=== PATIENT | male | born 1945 | race Caucasian/White ===

== ENCOUNTER → 2018-12-13 | Outpatient (CLI) | payer OTHER ==
--- NOTE | 2018-12-13 10:14 | US ---
EXAMINATION TYPE: US carotid duplex BILAT DATE OF EXAM: 12/13/2018 COMPARISON: NONE CLINICAL HISTORY: R20.2 Paresthesia of skin. HTN controlled with meds, no hx TIA EXAM MEASUREMENTS: RIGHT: Peak Systolic Velocity (PSV) cm/sec ----- Right CCA: 80.9 ----- Right ICA: 100.4 ----- Right ECA: 110.8 ICA/CCA ratio: 1.2 RIGHT: End Diastole cm/sec ----- Right CCA: 13.8 ----- Right ICA: 20.2 ----- Right ECA: 8.5 LEFT: Peak Systolic Velocity (PSV) cm/sec ----- Left CCA: 86.2 ----- Left ICA: 85.6 ----- Left ECA: 113.4 ICA/CCA ratio: 1.0 LEFT: End Diastole cm/sec ----- Left CCA: 20.2 ----- Left ICA: 20.8 ----- Left ECA: 12.4 VERTEBRALS (direction of flow): Right Vertebral: Antegrade Left Vertebral: Antegrade Rhythm: Normal Corcoran scale images show mild eccentric plaque at right carotid bulb anteriorly. Velocity measurements and ratios remain within normal limits and visualized portion of both internal carotid arteries. IMPRESSION: No hemodynamically significant stenosis is seen in either internal carotid artery. Criteria for Assigning % of Stenosis / Diameter reduction (Estimation based on the indirect measurements of the internal carotid artery velocities (ICA PSV). 1. Normal (no stenosis)=ICA PSV < 125 cm/s: ratio < 2.0: ICA EDV<40 cm/s. 2. Less than 50% stenosis=ICA PSV < 125 cm/s: ratio < 2.0: ICA EDV<40 cm/s. 3. 50 to 69% stenosis=ICA PSV of 125 to 230 cm/s: ration 2.0 ? 4.0: ICA EDV 40-100 cm/s. 4. Greater than 70% stenosis to near occlusion= ICA PSV > 230 cm/s: ratio > 4.0: ICA EDV > 100 cm/s. 5. Near occlusion= ICA PSV velocities may be low or undetectable: variable ratio and ICA EDV. 6. Total occlusion=unable to detect flow.
== END | disposition home or self-care (01) ==
LOC: RADUSWWP 09:30
DX: R20.2 Paresthesia of skin (principal)
CPT/HCPCS: 93880

== ENCOUNTER 2021-05-15 15:12 | Emergency (ER) | payer OTHER ==
--- NOTE | 2021-05-15 16:04 | ED ---
General Adult HPI - General Chief complaint: Recheck/Abnormal Lab/Rx Stated complaint: high potassium Time Seen by Provider: 05/15/21 15:27 Source: patient Mode of arrival: ambulatory Limitations: no limitations - History of Present Illness Initial comments: Dictation was produced using [employer] dictation software. please excuse any grammatical, word or spelling errors. Chief Complaint: 76-year-old male instructed to come to the emergency department for elevated potassium History of Present Illness: Is 76-year-old male he had blood drawn 2 days ago for a scheduled routine checkup next week. He had his blood work drawn and results were obtained. He was called by lab staff told to come to the emergency department for a potassium level 5.7. Patient has no complaints. Patient feels at baseline. He has no complaints at this time. The ROS documented in this emergency department record has been reviewed and confirmed by me. Those systems with pertinent positive or negative responses have been documented in the HPI. All other systems are other negative and/or noncontributory. PHYSICAL EXAM: General Impression: Alert and oriented x3, not in acute distress HEENT: Normocephalic atraumatic, extra-ocular movements intact, pupils equal and reactive to light bilaterally, mucous membranes moist. Cardiovascular: Heart regular rate and rhythm Chest: Able to complete full sentences, no retractions, no tachypnea Abdomen: abdomen soft, non-tender, non-distended, no organomegaly Musculoskeletal: Pulses present and equal in all extremities, no peripheral edema Motor: no focal deficits noted Neurological: CN II-XII grossly intact, no focal motor or sensory deficits noted Skin: Intact with no visualized rashes Psych: Normal affect and mood ED course: 76-year-old male presents emergency department for elevated potassium level 5.7. Signs upon arrival are within acceptable limits. Patient has no complaints. Patient's symptoms likely a hemolyzed sample. Laboratory evaluation obtained. CBC unremarkable. Metabolic panel within acceptable limits. Of note bicarb is slightly low at 18.. Elevated renal markers with creatinine 1.49 and BUN of 43 likely some mild dehydration. Magnesium 1.4. Patient given magnesium oxide. Reevaluated bedside at 5:15 PM upon of a stable medical condition. Patient's potassium level likely a lab error. He does have an appointment with his primary care doctor soon. Temp precautions discussed. Patient be discharged. Patient told to increase his magnesium in his diet and also to increase his hydration. EKG interpretation: Ventricular rate 67, sinus rhythm, MO interval 205, QRS 92, QTC 371. No MO prolongation, no QTC prolongation, no ST or T-wave changes noted. Overall, this EKG is unremarkable - Related Data Home Medications Medication Instructions Recorded Confirmed Aspirin 81 mg PO DAILY 05/02/14 07/10/14 Cyanocobalamin [Vitamin B-12] 500 mcg PO DAILY@1200 05/02/14 07/10/14 Enalapril [Vasotec] 10 mg PO DAILY 05/02/14 07/10/14 Etanercept [Enbrel] 50 mg SQ Q7DAYS 05/02/14 07/10/14 Naproxen Sodium [Aleve] 220 mg PO Q12HR 05/02/14 07/10/14 Simvastatin [Zocor] 10 mg PO HS 05/02/14 07/10/14 Terazosin [Hytrin] 10 mg PO HS 05/02/14 07/10/14 glipiZIDE [Glucotrol] 10 mg PO BID 05/02/14 07/10/14 Allergies Allergy/AdvReac Type Severity Reaction Status Date / Time No Known Allergies Allergy Verified 05/15/21 15:22 Review of Systems ROS Statement: Those systems with pertinent positive or pertinent negative responses have been documented in the HPI. ROS Other: All systems not noted in ROS Statement are negative. Past Medical History Past Medical History: Diabetes Mellitus, Hyperlipidemia Additional Past Medical History / Comment(s): psorisis History of Any Multi-Drug Resistant Organisms: None Reported Additional Past Surgical History / Comment(s): eye lid, cataract Past Psychological History: No Psychological Hx Reported Smoking Status: Never smoker Past Alcohol Use History: None Reported Past Drug Use History: None Reported General Exam Limitations: no limitations Course Vital Signs 05/15/21 05/15/21 15:17 15:56 Temperature 97.3 F L 98.6 F Pulse Rate 68 61 Respiratory 20 12 Rate Blood Pressure 135/65 137/123 O2 Sat by Pulse 99 98 Oximetry Medical Decision Making - Lab Data Result diagrams: 05/15/21 15:56 05/15/21 15:56 Lab Results 05/15/21 05/15/21 Range/Units 15:56 15:56 WBC 6.8 (3.8-10.6) k/uL RBC 3.78 L (4.30-5.90) m/uL Hgb 12.1 L (13.0-17.5) gm/dL Hct 36.2 L (39.0-53.0) % MCV 95.7 (80.0-100.0) fL MCH 32.1 (25.0-35.0) pg MCHC 33.5 (31.0-37.0) g/dL RDW 12.9 (11.5-15.5) % Plt Count 122 L (150-450) k/uL MPV 7.8 Neutrophils % 66 % Lymphocytes % 22 % Monocytes % 6 % Eosinophils % 5 % Basophils % 1 % Neutrophils # 4.5 (1.3-7.7) k/uL Lymphocytes # 1.5 (1.0-4.8) k/uL Monocytes # 0.4 (0-1.0) k/uL Eosinophils # 0.3 (0-0.7) k/uL Basophils # 0.1 (0-0.2) k/uL Sodium 140 (137-145) mmol/L Potassium 5.0 (3.5-5.1) mmol/L Chloride 112 H (98-107) mmol/L Carbon Dioxide 18 L (22-30) mmol/L Anion Gap 10 mmol/L BUN 43 H (9-20) mg/dL Creatinine 1.49 H (0.66-1.25) mg/dL Est GFR (CKD-EPI)AfAm 52 (>60 ml/min/1.73 sqM) Est GFR (CKD-EPI)NonAf 45 (>60 ml/min/1.73 sqM) Glucose 108 H (74-99) mg/dL Calcium 8.9 (8.4-10.2) mg/dL Magnesium 1.4 L (1.6-2.3) mg/dL Creatine Kinase 67 (55-170) U/L Disposition Clinical Impression: Abnormal laboratory test Disposition: HOME SELF-CARE Condition: Good Instructions (If sedation given, give patient instructions): Hypomagnesemia (ED), Dehydration (ED) Is patient prescribed a controlled substance at d/c from ED?: No Referrals: [facility],Clinic [Primary Care Provider] - 1-2 days
[2021-05-15 16:06] LABS: Basophils # (A) 0.1 k/uL (0-0.2); Basophils % (A) 1 %; Eosinophils # (A) 0.3 k/uL (0-0.7); Eosinophils % (A) 5 %; HCT 36.2 % (39.0-53.0); HGB 12.1 gm/dL (13.0-17.5); Lymphocytes # (A) 1.5 k/uL (1.0-4.8); Lymphocytes % (A) 22 %; MCH 32.1 pg (25.0-35.0); MCHC 33.5 g/dL (31.0-37.0); MCV 95.7 fL (80.0-100.0); Mean Platelet Volume 7.8; Monocytes # (A) 0.4 k/uL (0-1.0); Monocytes % (A) 6 %; Neutrophils # (A) 4.5 k/uL (1.3-7.7); Neutrophils % (A) 66 %; Platelet Count 122 k/uL (150-450); RBC 3.78 m/uL (4.30-5.90); RDW 12.9 % (11.5-15.5); WBC 6.8 k/uL (3.8-10.6)
[2021-05-15 16:59] LABS: Calcium 8.9 mg/dL (8.4-10.2); Magnesium 1.4 mg/dL (1.6-2.3)
[2021-05-15] MEDS ORDERED: MAGNESIUM OXIDE 400 MG TAB PO STA (17:10)
[2021-05-15 17:24] VITALS: BP 123/57; PULSE 60; RESP 14; TEMP 97.6
== END 2021-05-15 17:33 | disposition home or self-care (01) ==
LOC: EC 15:12
DX: E87.5 Hyperkalemia (principal); E11.9 Type 2 diabetes mellitus without complications; E78.5 Hyperlipidemia, unspecified; Z79.82 Long term (current) use of aspirin
CPT/HCPCS: 36415; 80048; 82550; 83735; 85025; 93005; 99285

== ENCOUNTER → 2021-06-05 | Outpatient (CLI) | payer OTHER ==
--- NOTE | 2021-06-05 07:58 | US ---
EXAMINATION TYPE: US carotid duplex BILAT DATE OF EXAM: 06/05/2021 COMPARISON: US CLINICAL HISTORY: R42.0 DIZZINESS. Diabetic; dizziness with positional changes EXAM MEASUREMENTS: RIGHT: Peak Systolic Velocity (PSV) cm/sec ----- Right CCA: 72.0 ----- Right ICA: 81.1 ----- Right ECA: 125.5 ICA/CCA ratio: 1.1 RIGHT: End Diastole cm/sec ----- Right CCA: 17.6 ----- Right ICA: 15.0 ----- Right ECA: 22.0 LEFT: Peak Systolic Velocity (PSV) cm/sec ----- Left CCA: 72.2 ----- Left ICA: 86.6 ----- Left ECA: 122.2 ICA/CCA ratio: 1.2 LEFT: End Diastole cm/sec ----- Left CCA: 19.4 no significant hemodynamic stenosis as visualized. ----- Left ICA: 26.0 ----- Left ECA: 18.8 VERTEBRALS (direction of flow): Right Vertebral: Antegrade Left Vertebral: Antegrade Rhythm: Normal Mild intimal wall changes are seen at bilateral carotid bifurcation, but PSV is wnl bilaterally. IMPRESSION: 1. Criteria for Assigning % of Stenosis / Diameter reduction (Estimation based on the indirect measurements of the internal carotid artery velocities (ICA PSV). 1. Normal (no stenosis)=ICA PSV < 125 cm/s: ratio < 2.0: ICA EDV<40 cm/s. 2. Less than 50% stenosis=ICA PSV < 125 cm/s: ratio < 2.0: ICA EDV<40 cm/s. 3. 50 to 69% stenosis=ICA PSV of 125 to 230 cm/s: ration 2.0 ? 4.0: ICA EDV 40-100 cm/s. 4. Greater than 70% stenosis to near occlusion= ICA PSV > 230 cm/s: ratio > 4.0: ICA EDV > 100 cm/s. 5. Near occlusion= ICA PSV velocities may be low or undetectable: variable ratio and ICA EDV. 6. Total occlusion=unable to detect flow.
--- NOTE | 2021-06-05 08:33 | CT ---
EXAMINATION TYPE: CT brain wo con DATE OF EXAM: 06/05/2021 COMPARISON: None available HISTORY: Dizziness CT DLP: 1121 mGycm Automated exposure control for dose reduction was used. TECHNIQUE: CT scan of the brain is performed without IV contrast administration. FINDINGS: Right inferior cerebellar chronic infarct, with a smaller one superiorly. Brain volume loss changes. Scattered arterial atherosclerotic calcifications. Questionable right frontal subcortical white matte r elongated chronic infarct. No acute intracranial hemorrhage. No gross acute cortical infarct. No mi dline shift, herniation or ventriculomegaly. Unremarkable parson-white matter differentiation, basal cisterns, sella and CP angles. No gross space-o ccupying lesion, vasogenic edema or mass effect. Left scleral band, otherwise grossly unremarkable or bits. Mucosal thickening of the maxillary sinuses. Clear mastoid air cells. No aggressive bone lesion . 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 No acute intracranial hemorrhage or gross acute cortical infarct. No gross space-occupying lesion by this unenhanced CT scan. Further MRI assessment can be considered if clinically required.
== END | disposition home or self-care (01) ==
LOC: RADUSWWP 07:06
DX: I63.9 Cerebral infarction, unspecified (principal); E11.9 Type 2 diabetes mellitus without complications
CPT/HCPCS: 70450; 93880

== ENCOUNTER → 2021-12-27 | Outpatient (CLI) | payer OTHER ==
--- NOTE | 2021-12-27 10:16 | MR ---
EXAMINATION TYPE: MR brain wo con DATE OF EXAM: 12/27/2021 9:51 AM COMPARISON: CT head 06/05/2021 CLINICAL INDICATION:Male, 76 years old with history of R93.0 Abnormal DX IMAGING OF SKULL AND HEAD; TECHNIQUE: Multi planar, multi sequence imaging was performed through the brain including: T1, T2, In version recovery, Diffusion weighted imaging, and gradient echo imaging. No gadolinium was given. FINDINGS: The parson-white junctions, ventricular system, and cisterns appear unremarkable. Remote right cerebel lar lacunar injuries. Patchy areas of high T2 signal intensity are seen within the periventricular wh ite matter. Midline structures show no abnormality. Diffusion-weighted imaging shows no evidence of r estricted diffusion. The susceptibility weighted images do not reveal any evidence for micro-hemorrha ge. The bone marrow signal is within normal limits. The paranasal sinuses are unremarkable. Bilateral aph ahmet. IMPRESSION: 1. No evidence of intracranial mass or acute/subacute infarct. Similar remote right cerebellar injury . 2. Nonspecific white matter changes, likely secondary to small vessel ischemic disease.
== END | disposition home or self-care (01) ==
LOC: RADMRIMAIN 08:31
PROVIDERS: ATTEND Physician Assistant Medical
DX: R93.0 Abnormal findings on diagnostic imaging of skull and head, not elsewhere classified (principal)
CPT/HCPCS: 70551

== ENCOUNTER → 2022-06-17 | Outpatient (CLI) | payer OTHER ==
--- NOTE | 2022-06-17 11:34 | US ---
EXAMINATION TYPE: US kidneys/renal and bladder DATE OF EXAM: 06/17/2022 COMPARISON: NONE CLINICAL HISTORY: N18..9 CKD. CKD EXAM MEASUREMENTS: Right Kidney: 12.2 x 6.0 x 5.4 cm Left Kidney: 11.6 x 5.3 x 4.8 cm Right Kidney: cystic areas noted, largest = 5.6 x 5.4 x 5.3cm Left Kidney: cystic areas noted, largest = 1.7 x 1.7 x 2.0cm Bladder: appears wnl Bilateral Jets seen: no There is no evidence for hydronephrosis at this point in time. No nephrolithiasis is seen. No solid masses are identified. The urinary bladder is anechoic. Bilateral ureteral jets are seen. IMPRESSION: Simple renal cysts noted.
== END | disposition home or self-care (01) ==
LOC: RADUSWWP 10:06
DX: N28.1 Cyst of kidney, acquired (principal); N18.9 Chronic kidney disease, unspecified
CPT/HCPCS: 76770

== ENCOUNTER 2024-06-17 15:05 | Emergency (ER) | payer OTHER ==
--- NOTE | 2024-06-17 15:15 | ED ---
General Adult HPI - General Source: patient, RN notes reviewed Mode of arrival: ambulatory Limitations: no limitations <Ayala Coleman - Last Filed: 06/17/24 15:14> - General Source: patient, RN notes reviewed, old records reviewed Mode of arrival: ambulatory Limitations: no limitations - History of Present Illness -: month(s) Location: left, right, upper extremity, lower extremity Radiation: extremity Severity scale (1-10): 7 Quality: sharp Consistency: intermittent Improves with: none Worsens with: none Associated Symptoms: denies other symptoms Treatments Prior to Arrival: NSAID <Nino Anderson - Last Filed: 06/17/24 18:23> - General Stated complaint: Generalized pain Time Seen by Provider: 06/17/24 15:14 - History of Present Illness Initial comments: Quick note: 79-year-old male presented the ER for evaluation of pain. Patient states he has severe arthritis in his hips shoulders and hands which typically causes the pain. Patient states [facility]. Patient seeking pain management. No new injuries or traumas. (Ayala Coleman) This is a 79 female to the ER for evaluation patient presents today for evaluation of severe arthritis history of arthritis multiple ER visits recently as well as a primary care visit steroids have helped anti-inflammatories is amber saab patient is currently out of medication (Nino Anderson) - Related Data Home Medications Medication Instructions Recorded Confirmed Aspirin 81 mg PO HS 05/02/14 05/15/21 Cyanocobalamin [Vitamin B-12] 500 mcg PO HS 05/02/14 05/15/21 Etanercept [Enbrel] 50 mg SQ Q7DAYS 05/02/14 05/15/21 Simvastatin [Zocor] 10 mg PO HS 05/02/14 05/15/21 Terazosin [Hytrin] 10 mg PO HS 05/02/14 05/15/21 glipiZIDE [Glucotrol] 10 mg PO BID 05/02/14 05/15/21 Enalapril [Vasotec] 5 mg PO DAILY 05/15/21 05/15/21 Previous Rx's Medication Instructions Recorded methylPREDNISolone Dose Pack 4 mg PO DIRECTED #21 tab 05/16/24 [Medrol Dose Pack] Ketorolac [Toradol] 10 mg PO Q6HR #20 tab 06/17/24 predniSONE 50 mg PO DAILY #5 tablet 06/17/24 Allergies Allergy/AdvReac Type Severity Reaction Status Date / Time No Known Allergies Allergy Verified 05/16/24 08:54 Review of Systems ROS Other: All systems not noted in ROS Statement are negative. <Ayala Coleman - Last Filed: 06/17/24 15:14> ROS Other: All systems not noted in ROS Statement are negative. <Nino Anderson - Last Filed: 06/17/24 18:23> ROS Statement: Those systems with pertinent positive or pertinent negative responses have been documented in the HPI. Past Medical History Past Medical History: Diabetes Mellitus, Hyperlipidemia, Hypertension Additional Past Medical History / Comment(s): psorisis History of Any Multi-Drug Resistant Organisms: None Reported Additional Past Surgical History / Comment(s): eye lid, cataract Past Psychological History: No Psychological Hx Reported Smoking Status: Former smoker Past Alcohol Use History: None Reported Past Drug Use History: None Reported <Ayala Coleman - Last Filed: 06/17/24 15:14> General Exam <Ayala Coleman - Last Filed: 06/17/24 15:14> General appearance: alert, in no apparent distress Head exam: Present: atraumatic, normocephalic, normal inspection Eye exam: Present: normal appearance, PERRL, EOMI. Absent: scleral icterus, conjunctival injection, periorbital swelling ENT exam: Present: normal exam, mucous membranes moist Neck exam: Present: normal inspection. Absent: tenderness, meningismus, lymphadenopathy Respiratory exam: Present: normal lung sounds bilaterally. Absent: respiratory distress, wheezes, rales, rhonchi, stridor Cardiovascular Exam: Present: regular rate, normal rhythm, normal heart sounds. Absent: systolic murmur, diastolic murmur, rubs, gallop, clicks GI/Abdominal exam: Present: soft, normal bowel sounds. Absent: distended, tenderness, guarding, rebound, rigid Extremities exam: Present: normal inspection, full ROM, normal capillary refill. Absent: tenderness, pedal edema, joint swelling, calf tenderness Back exam: Present: normal inspection Neurological exam: Present: alert, oriented X3, CN II-XII intact Psychiatric exam: Present: normal affect, normal mood Skin exam: Present: warm, dry, intact, normal color. Absent: rash <Nino Anderson - Last Filed: 06/17/24 18:23> - General Exam Comments Initial Comments: Visual Physical Exam Vital signs reviewed General: Well-appearing, nontoxic, no acute distress. Head: Normocephalic, atraumatic Eyes: PERRLA, EOMI ENT: Airway patent Chest: Nonlabored breathing Skin: No visual rash, normal skin tone Neuro: Alert and oriented 3 Musculoskeletal: No gross abnormalities (Ayala Coleman) Course <Nino Anderson - Last Filed: 06/17/24 18:23> Vital Signs 06/17/24 06/17/24 15:31 17:32 Temperature 98 F 98.2 F Pulse Rate 69 62 Respiratory 18 18 Rate Blood Pressure 152/67 168/72 O2 Sat by Pulse 99 100 Oximetry - Reevaluation(s) Reevaluation #1: 06/17/24 18:23 Medical record is reviewed (Nino Anderson) Reevaluation #2: 06/17/24 18:23 Patient's pain is improved (Nino Anderson) Reevaluation #3: 06/17/24 18:23 Patient informed of results questions answered (Nino Anderson) Reevaluation #4: Was pt. sent in by a medical professional or institution (, PA, PROJECT PRODUCT MANAGER, urgent care, hospital, or correction...) When possible be specific @ -no Did you speak to anyone other than the patient for history (EMS, parent, family, police, friend...)? What history was obtained from this source @ -no Did you review nursing and triage notes (agree or disagree)? Why? @ -agree Are old charts reviewed (outside hosp., previous admission, EMS record, old EKG, old radiological studies, urgent care reports/EKG's, correction records)? Report findings @ -yes Differential Diagnosis (chest pain, altered mental status, abdominal pain women, abdominal pain men, vaginal bleeding, weakness, fever, dyspnea, syncope, headache, dizziness, GI bleed, back pain, seizure, CVA, palpatations, mental health, musculoskeletal)? @ -prior EKG interpreted by me (3pts min.). @ -yes X-rays interpreted by me (1pt min.). @ -yes negative for acute disease CT interpreted by me (1pt min.). @ -no U/S interpreted by me (1pt. min.). @ -no What testing was considered but not performed or refused? (CT, X-rays, U/S, labs)? Why? @ -none What meds were considered but not given or refused? Why? @ -none Did you discuss the management of the patient with other professionals (professionals i.e. , PA, PROJECT PRODUCT MANAGER, lab, RT, psych nurse, social services specialist, county supervisor, teacher, military source operations officer, case finisher)? Give summary @ -no Was smoking cessation discussed for >3mins.? @ -no Was critical care preformed (if so, how long)? @ -no Were there social determinants of health that impacted care today? How? (Trevin elessness, low income, unemployed, alcoholism, drug addiction, transportation, low edu. Level, literacy, decrease access to med. care, [facility], rehab)? @ -none Was there de-escalation of care discussed even if they declined (Discuss DNR or withdrawal of care, Hospice)? DNR status @ -no What co-morbidities impacted this encounter? (DM, HTN, Smoking, COPD, CAD, Cancer, CVA, ARF, Chemo, Hep., AIDS, mental health diagnosis, sleep apnea, morbid obesity)? @ -none Was patient admitted / discharged? Hospital course, mention meds given and route, prescriptions, significant lab abnormalities, going to OR and other pertinent info. @ - Undiagnosed new problem with uncertain prognosis? @ -no Drug Therapy requiring intensive monitoring for toxicity (Heparin, Nitro, Insulin, Cardizem)? @ -no Were any procedures done? @ -no Diagnosis/symptom? @ - Acute, or Chronic, or Acute on Chronic? @ -Acute Uncomplicated (without systemic symptoms) or Complicated (systemic symptoms)? @ -Complicated Side effects of treatment? @ -no Exacerbation, Progression, or Severe Exacerbation? @ -exacerbation Poses a threat to life or bodily function? How? (Chest pain, USA, PA, pneumonia, PE, COPD, DKA, ARF, appy, cholecystitis, CVA, Diverticulitis, Homicidal, Suicidal, threat to staff... and all critical care pts) @ -yes (Roskowilda,Nino B) Medical Decision Making <Ayala Coleman - Last Filed: 06/17/24 15:14> <Nino Anderson - Last Filed: 06/17/24 18:23> - Medical Decision Making I performed the quick note portion of this chart. Electronically signed by Ayala Coleman PA-C (Ayala Coleman) 79 male with chronic osteoarthritic pain. Patient is given pain control anti-inflammatories here in the ER and can be discharged home (Nino Anderson) Disposition <Ayala Coleman - Last Filed: 06/17/24 15:14> Is patient prescribed a controlled substance at d/c from ED?: No Time of Disposition: 17:00 <Nino Anderson - Last Filed: 06/17/24 18:23> Clinical Impression: Osteoarthritis Disposition: HOME SELF-CARE Condition: Good Instructions (If sedation given, give patient instructions): Osteoarthritis (ED) Prescriptions: predniSONE 50 mg PO DAILY #5 tablet Ketorolac [Toradol] 10 mg PO Q6HR #20 tab Referrals: Deacon Larsen DO [Primary Care Provider] - 1-2 days
[2024-06-17 15:40] VITALS: RESP 18
[2024-06-17] MEDS: KETOROLAC 15 MG/ML 1 ML VIAL IM STA (17:27)
[2024-06-17] MEDS: DEXAMETHASONE SOD PHOSPHATE 10 MG/ML 1 ML VIAL IM STA (17:28)
[2024-06-17 17:33] VITALS: BP 168/72; PULSE 62; TEMP 98.2
== END 2024-06-17 17:34 | disposition home or self-care (01) ==
LOC: EC 15:05
DX: M19.90 Unspecified osteoarthritis, unspecified site (principal); Z87.891 Personal history of nicotine dependence
CPT/HCPCS: 99283; 96372 ×2; J1100; J1885

== ENCOUNTER 2024-07-10 09:55 | Emergency (ER) | payer OTHER, MEDICARE ==
[2024-07-10 10:05] VITALS: TEMP 97.7
--- NOTE | 2024-07-10 10:39 | ED ---
General Adult HPI - General Chief complaint: Back Pain/Injury Stated complaint: Arm and Leg Pain Time Seen by Provider: 07/10/24 10:39 Source: patient, RN notes reviewed, old records reviewed Mode of arrival: wheelchair Limitations: no limitations - History of Present Illness Initial comments: 79-year-old male with a past medical history significant of diabetes mellitus, hypertension, hyperlipidemia and rheumatoid arthritis presenting to the ER for evaluation of arthritis pain. Patient states this been ongoing since the first of the year and is endorsing pain to bilateral shoulders, hands and hips. He has been seen numerous times in this ER for similar complaint. Patient has been prescribed prednisone course but states he was only received 5 pills and is trying to "spread them out". He is also been taking [id number] ibuprofen and Tylenol. Patient states pain is limiting his range of motion and daily activities. He is scheduled to follow-up with a filler blender in "42 days". Patient denies any new injuries or traumas. He states his pain is typical for his arthritis pain. Patient is seeking pain control. Patient also mentions he has noticed his left hand appears swollen over the past week. He denies any injuries or traumas. He states it is not painful unless he attempts to make a fist. No history of blood clots. No blood thinner use. Patient takes a baby aspirin. Patient reports a possible history of gout in knee many years ago. Patient denies any chest pain, shortness of breath, dizziness, lightheadedness, palpitations or other complaints at this time. - Related Data Home Medications Medication Instructions Recorded Confirmed Aspirin 81 mg PO HS 05/02/14 07/10/24 Cyanocobalamin [Vitamin B-12] 500 mcg PO HS 05/02/14 07/10/24 Terazosin HCl 10 mg PO DIRECTED 07/10/24 07/10/24 Previous Rx's Medication Instructions Recorded Ketorolac [Toradol] 10 mg PO Q8HR #15 tab 07/10/24 predniSONE 50 mg PO DAILY #5 tab 07/10/24 Allergies Allergy/AdvReac Type Severity Reaction Status Date / Time No Known Allergies Allergy Verified 07/10/24 13:13 Review of Systems ROS Statement: Those systems with pertinent positive or pertinent negative responses have been documented in the HPI. ROS Other: All systems not noted in ROS Statement are negative. Past Medical History Past Medical History: Diabetes Mellitus, Hyperlipidemia, Hypertension, Osteoarthritis (OA), Rheumatoid Arthritis (RA) Additional Past Medical History / Comment(s): psorisis History of Any Multi-Drug Resistant Organisms: None Reported Additional Past Surgical History / Comment(s): eye lid, cataract Past Psychological History: No Psychological Hx Reported Smoking Status: Former smoker Past Alcohol Use History: None Reported Past Drug Use History: None Reported General Exam Limitations: no limitations General appearance: alert, in no apparent distress Respiratory exam: Present: normal lung sounds bilaterally. Absent: respiratory distress, wheezes, rales, rhonchi, stridor Cardiovascular Exam: Present: regular rate, normal rhythm, normal heart sounds. Absent: systolic murmur, diastolic murmur, rubs, gallop, clicks Extremities exam: Present: normal inspection, normal capillary refill (2+ daria ateral radial and PT pulses.), other (Left hand is mildly edematous. No overlying erythema, wounds, or skin changes. limited rom given pain.) Neurological exam: Present: alert, oriented X3, CN II-XII intact Skin exam: Present: warm, dry, intact, normal color. Absent: rash Course Vital Signs 07/10/24 07/10/24 10:02 13:42 Temperature 97.7 F Pulse Rate 72 74 Respiratory 20 18 Rate Blood Pressure 162/90 166/91 O2 Sat by Pulse 99 97 Oximetry Medical Decision Making - Medical Decision Making Was pt. sent in by a medical professional or institution (JOSIE Johnston, AGRICULTURAL SERVICE WORKER, urgent care, hospital, or [facility]...) When possible be specific @ -No Did you speak to anyone other than the patient for history (EMS, parent, family, police, friend...)? What history was obtained from this source @ -No Did you review nursing and triage notes (agree or disagree)? Why? @ -I reviewed and agree with nursing and triage notes Were old charts reviewed (outside hosp., previous admission, EMS record, old EKG, old radiological studies, urgent care reports/EKG's, [facility] records)? Report findings @ -No old charts were reviewed Differential Diagnosis (chest pain, altered mental status, abdominal pain women, abdominal pain men, vaginal bleeding, weakness, fever, dyspnea, syncope, headache, dizziness, GI bleed, back pain, seizure, CVA, palpatations, mental health, musculoskeletal)? @ -Differential Musculoskeletal: Muscular strain, contusion, ligament sprain, fracture, arthritis, septic arthritis, bursitis, cellulitis, muscle spasm, nerve compression, DVT, arterial occlusion, herpes zoster, electrolyte abnormality, tumor.... This is not meant to be in all inclusive list EKG interpreted by me (3pts min.). @ -None done X-rays interpreted by me (1pt min.). @ -None done CT interpreted by me (1pt min.). @ -None done U/S interpreted by me (1pt. min.). @ -Ultrasound left upper extremity negative for acute evidence of DVT. What testing was considered but not performed or refused? (CT, X-rays, U/S, labs)? Why? @ -Xrays considered of shoulders and hips but not completed as this is chronic pain. No new injuries. Patient agreeable What meds were considered but not given or refused? Why? @ -None Did you discuss the management of the patient with other professionals (professionals i.e. , PA, AGRICULTURAL SERVICE WORKER, lab, RT, psych nurse, manager social services, shirt creaser, teacher, emergency communications officer, high risk case manager)? Give summary @ -No Was smoking cessation discussed for >3mins.? @ -No Was critical care preformed (if so, how long)? @ -No Were there social determinants of health that impacted care today? How? (Homelessness, low income, unemployed, alcoholism, drug addiction, transportation, low edu. Level, literacy, decrease access to med. care, detention, rehab)? @ -No Was there de-escalation of care discussed even if they declined (Discuss DNR or withdrawal of care, Hospice)? DNR status @ -No What co-morbidities impacted this encounter? (DM, HTN, Smoking, COPD, CAD, Cancer, CVA, ARF, Chemo, Hep., AIDS, mental health diagnosis, sleep apnea, morbid obesity)? @ -None Was patient admitted / discharged? Hospital course, mention meds given and route, prescriptions, significant lab abnormalities, going to OR and other pertinent info. @ -Discharge. 79-year-old male presented the ER for evaluation of polyarthralgia. Upon rooming, history and physical exam completed. Vitals within acceptable limits. Patient is neurovascularly intact. There is nonpitting edema noted to left hand. Left hand is not erythematous, warm or with tender joints concerning of gout. Given this finding, ultrasound was obtained and negative for acute evidence of DVT. Pain believed to be due to arthritis patient is scheduled to follow-up with filler blender for further evaluation of rheumatoid/psoriatic arthritis next month. Pain control in the ER with IM Decadron and Toradol. Upon reevaluation, patient resting comfortably on stretcher no signs of acute distress. Patient reporting improvement of pain. Patient is comfortable for discharge. Patient prescribed prednisone and Toradol. Advised him to take prednisone as prescribed. Strict return parameters discussed. Patient discharged in stable condition with follow-up to rheumatology and PCP. Patient verbally expressed understanding agreement with care plan. Case discussed with ED attending, Dr. Barcenas.] Undiagnosed new problem with uncertain prognosis? @ -No Drug Therapy requiring intensive monitoring for toxicity (Heparin, Nitro, Insulin, Cardizem)? @ -No Were any procedures done? @ -No Diagnosis/symptom? @ -Polyarthralgia Acute, or Chronic, or Acute on Chronic? @ -Acute Uncomplicated (without systemic symptoms) or Complicated (systemic symptoms)? @ -Uncomplicated Side effects of treatment? @ -No Exacerbation, Progression, or Severe Exacerbation? @ -No Poses a threat to life or bodily function? How? (Chest pain, [place], [place], pneumonia, PE, COPD, DKA, ARF, appy, cholecystitis, CVA, Diverticulitis, Homicidal, Suicidal, threat to staff... and all critical care pts) @ -No - Radiology Data Radiology results: report reviewed, image reviewed Disposition Clinical Impression: Polyarthralgia Disposition: HOME SELF-CARE Condition: Stable Additional Instructions: Follow-up with PCP. Take prednisone and Toradol as prescribed for pain control. Follow-up with rheumatology and PCP. Return to the ER for any new or worsening concerns. Prescriptions: predniSONE 50 mg PO DAILY #5 tab Ketorolac [Toradol] 10 mg PO Q8HR #15 tab Is patient prescribed a controlled substance at d/c from ED?: No Referrals: Deacon Larsen DO [Primary Care Provider] - 1-2 days Time of Disposition: 13:32
[2024-07-10] MEDS: DEXAMETHASONE SOD PHOSPHATE 10 MG/ML 1 ML VIAL IM STA (11:09)
[2024-07-10] MEDS: KETOROLAC 15 MG/ML 1 ML VIAL IM STA (11:09)
--- NOTE | 2024-07-10 13:03 | US ---
EXAMINATION TYPE: US venous doppler duplex UE LT DATE OF EXAM: 07/10/2024 COMPARISON: NONE CLINICAL INDICATION: Male, 79 years old with history of left hand swelling; pain in shoulder, decreas ed ROM and swelling in left hand, no h.o dvt TECHNIQUE: Grayscale, color Doppler and spectral Doppler imaging of the upper extremity. SIDE PERFORMED: Left VESSELS IMAGED: IJV Subclavian Vein Axilla Vein Brachial Vein(s) Radial Paired Veins Ulnar Paired Veins Cephalic Vein* Basilic Vein* (*superficial vessels) FINDINGS: Left Arm: Negative for DVT Grayscale, color doppler, spectral doppler imaging performed of the deep veins of the upper extremiti es. IMPRESSION: No evidence for DVT of the left upper extremity. [facility], , 07/10/2024 1:00 PM
[2024-07-10 13:54] VITALS: BP 166/91; PULSE 74; RESP 18
== END 2024-07-10 13:54 | disposition home or self-care (01) ==
LOC: EC 09:55
DX: M25.512 Pain in left shoulder (principal); M25.511 Pain in right shoulder; M25.542 Pain in joints of left hand; M25.541 Pain in joints of right hand; M25.552 Pain in left hip; M25.551 Pain in right hip; Z87.891 Personal history of nicotine dependence
CPT/HCPCS: 93971; 99284; 96372 ×2; J1100; J1885